=== PATIENT | male | born 1945 | race Caucasian/White ===

== ENCOUNTER 2016-12-23 01:44 | Emergency (ER) | payer OTHER ==
[~2016-12-23] VITALS: Ht 172.7 cm; Wt 81.8 kg
[~2016-12-23 01:44] MED LIST: EPP3/2 IM
[2016-12-23 01:54] VITALS: TEMP 36.6; O2SAT 93; Ht 172.7 cm; Wt 81.8 kg
[2016-12-23] MEDS ORDERED: SODIUM CHLORIDE 0.9% 250ML 250 ML IV STA (02:12)
[2016-12-23] MEDS ORDERED: SODIUM CHLORIDE 0.9% 1000ML 1,000 ML IV STA (02:12)
--- NOTE | 2016-12-23 02:22 | EMERGENCY ROOM VISIT NOTE ---
History Report prepared by Emili: Katharina Lerma Under the Supervision of: Dr. Trudy Alaniz M.D. First contact with patient: 01:55 Chief Complaint: SYNCOPE (NEAR SYNCOPE) Stated Complaint: etoh syncopal episode History of Present Illness The patient is a 71 year old male who presents to the Emergency Room via EMS to be evaluated for an episode of syncope that occurred this evening. Per family, the patient was enjoying an evening at camp with his friends. The patient was drinking vodka and orange juice. As they were leaving, the patient's legs seemed to give out. The patient did not fall. His family deny that the patient lost consciousness, he did not hit his head. The patient denies having chest pain. His family members note that the patient has a history of diabetes. Onset: this evening Position: other (global ) Quality: other (syncope) Timing: other (episode) Associated Symptoms: No LOC, No chest pain Note: The patient's family members deny that the patient hit his head. Review of Systems See HPI for pertinent positives & negatives. A total of 10 systems reviewed and were otherwise negative. Past Medical & Surgical Medical Problems: (1) Diabetes Family History Diabetes mellitus Social History Smoking Status: Never Smoker Alcohol Use: occasionally Drug Use: none Marital Status: Housing Status: lives with family Current/Historical Medications Scheduled Epinephrine (Epipen), 0.3 MG IM UD Glimepiride (Glimepiride), 4 MG PO EVENING MEAL Metformin Hcl (Glucophage), 1,000 MG PO QPM Allergies Uncoded Allergies: BEES (Allergy, Severe, ANAPHYLACTIC, 07/25/12) Physical Exam Vital Signs Date Time Temp Pulse Resp B/P Pulse Ox O2 Delivery O2 Flow Rate FiO2 12/23/16 06:14 85 16 107/69 97 Room Air 12/23/16 05:51 87 12/23/16 04:45 88 16 109/65 97 Room Air 12/23/16 03:37 78 16 118/68 92 Room Air 12/23/16 01:59 93 12/23/16 01:54 36.6 93 18 113/64 93 Room Air 12/23/16 01:54 93 Room Air Physical Exam Vital signs reviewed. General: Odor of EtOH in the breath, 71-year-old male. No signs of trauma. HEENT: Mild scleral injection bilaterally, PERRLA, neck supple, dry mucous membranes. Atraumatic Cardiovascular: Regular rate and rhythm, no extra sounds. Pulmonary: Clear to auscultation bilaterally, normal work of breathing. Abdomen: Soft, nontender, nondistended, positive bowel sounds. Musculoskeletal: Upper and lower extremities atraumatic, no peripheral edema Skin: Warm, dry, no rash. Atraumatic. Neurologic: Patient is currently awake and speaking. His words are slurred but appropriate. Medical Decision & Procedures ER Provider Diagnostic Interpretation: X-ray results as stated below per interpretation by me. Chest x-ray: A poor inspiratory effort, he has cardiomegaly, mild vascular congestion, no focal infiltrate, no pneumothorax, distended gastric bubble. Laboratory Results 12/23/16 02:30 Red Blood Count 4.55, Mean Corpuscular Volume 89.2, Mean Corpuscular Hemoglobin 32.1, Mean Corpuscular Hemoglobin Concent 36.0, Mean Platelet Volume 9.7, Neutrophils (%) (Auto) 57.0, Lymphocytes (%) (Auto) 32.2, Monocytes (%) (Auto) 6.6, Eosinophils (%) (Auto) 3.1, Basophils (%) (Auto) 0.8, Neutrophils # (Auto) 5.48, Lymphocytes # (Auto) 3.09, Monocytes # (Auto) 0.63, Eosinophils # (Auto) 0.30, Basophils # (Auto) 0.08 12/23/16 02:30 Test 12/23/16 02:30 12/23/16 02:40 12/23/16 04:45 White Blood Count 9.61 K/uL (4.8-10.8) Red Blood Count 4.55 M/uL (4.7-6.1) Hemoglobin 14.6 g/dL (14.0-18.0) Hematocrit 40.6 % (42-52) Mean Corpuscular Volume 89.2 fL (80-100) Mean Corpuscular Hemoglobin 32.1 pg (25-34) Mean Corpuscular Hemoglobin Concent 36.0 g/dl (32-36) Platelet Count 223 K/uL (130-400) Mean Platelet Volume 9.7 fL (7.4-10.4) Neutrophils (%) (Auto) 57.0 % Lymphocytes (%) (Auto) 32.2 % Monocytes (%) (Auto) 6.6 % Eosinophils (%) (Auto) 3.1 % Basophils (%) (Auto) 0.8 % Neutrophils # (Auto) 5.48 K/uL (1.4-6.5) Lymphocytes # (Auto) 3.09 K/uL (1.2-3.4) Monocytes # (Auto) 0.63 K/uL (0.11-0.59) Eosinophils # (Auto) 0.30 K/uL (0-0.5) Basophils # (Auto) 0.08 K/uL (0-0.2) RDW Standard Deviation 40.9 fL (36.4-46.3) RDW Coefficient of Variation 12.8 % (11.5-14.5) Immature Granulocyte % (Auto) 0.3 % Immature Granulocyte # (Auto) 0.03 K/uL (0.00-0.02) Anion Gap 13.0 mmol/L (3-11) Est Creatinine Clear Calc Drug Dose 70.2 ml/min Estimated GFR () 96.0 Estimated GFR (Non- 82.8 BUN/Creatinine Ratio 15.2 (10-20) Calcium Level 8.2 mg/dl (8.5-10.1) Magnesium Level 2.1 mg/dl (1.8-2.4) Total Bilirubin 0.3 mg/dl (0.2-1) Direct Bilirubin < 0.1 mg/dl (0-0.2) Aspartate Amino Transf (AST/SGOT) 18 U/L (15-37) Alanine Aminotransferase (ALT/SGPT) 38 U/L (12-78) Alkaline Phosphatase 58 U/L (45-117) Total Creatine Kinase 97 U/L (39-308) Creatine Kinase MB 1.9 ng/ml (0.5-3.6) Creatine Kinase MB Ratio 2.0 (0-3.0) Total Protein 7.3 gm/dl (6.4-8.2) Albumin 3.8 gm/dl (3.4-5.0) Ethyl Alcohol mg/dL 227.0 mg/dl (0-3) Bedside Troponin I 0.000 ng/ml (0-0.045) Urine Color YELLOW Urine Appearance CLEAR (CLEAR) Urine pH 5.0 (4.5-7.5) Urine Specific [place] 1.010 (1.000-1.030) Urine Protein NEG (NEG) Urine Glucose (UA) TRACE (NEG) Urine Ketones TRACE (NEG) Urine Occult Blood NEG (NEG) Urine Nitrite NEG (NEG) Urine Bilirubin NEG (NEG) Urine Urobilinogen NEG (NEG) Urine Leukocyte Esterase NEG (NEG) Laboratory results per my review. Medications Administered Medications (Trade) Dose Ordered Sig/Castro Route Start Time Stop Time Status Last Admin Dose Admin Sodium Chloride 250 ml @ 999 mls/hr Q16M STAT IV 12/23/16 02:12 12/23/16 02:27 DC 12/23/16 02:46 999 MLS/HR Sodium Chloride (Nss 1000ml) 1,000 ml @ 125 mls/hr Q8H STAT IV 12/23/16 02:12 12/23/16 06:39 DC 12/23/16 03:04 125 MLS/HR ECG Indication: syncope Rate (beats per minute): 84 Rhythm: sinus rhythm Findings: 1st degree AV block, no acute ischemic change, no ectopy, other ( possible previous anterior infarct, T wave abnormality inferior leads) ED Course 0211: Past medical records reviewed. The patient was evaluated in room A2. A complete history and physical examination was performed. 0212: Sodium Chloride 1000 ml @ 125 mls/hr IV, Sodium Chloride 250 ml @ 999 mls/ hr IV 0447: I reevaluated the patient and informed him that he will stay in the ED until later this morning. 0602: I reevaluated the patient; he will now eat some breakfast and will then try to walk. 0645: Upon reevaluation, the patient appeared to have improvement of his symptoms. I discussed findings with the patient. He verbalized agreement of the treatment plan. The patient was discharged home. Medical Decision The patient is a 71 year old male who presents to the ED with complaints of an episode of syncope. The differential diagnosis of the patient's presentation includes alcohol ingestion, illicit drug use, trauma, and dehydration. This pt was evaluated and appeared to be in no distress. IV access was obtained and lab work was drawn. Pt was placed on the traffic monitor specialist. Pt was hydrated with NSS. Lab work reveals a blood ETOH of 227 with mild hyperglycemia. EKG reveals a NSR without arrhythmia. Pt was observed for several hours in the ED. He was ambulatory to the bathroom and tolerating po food and fluids. He was d/c to care of family and will return to the ED for worsening of symptoms or any medical concerns. Impression Primary Impression: Alcohol intoxication Additional Impression: Near syncope Scribe Attestation The scribe's documentation has been prepared under my direction and personally reviewed by me in its entirety. I confirm that the note above accurately reflects all work, treatment, procedures, and medical decision making performed by me. Departure Information Dispostion Home / Self-Care Referrals No Doctor, Assigned (PCP) Forms HOME CARE DOCUMENTATION FORM, IMPORTANT VISIT INFORMATION Patient Instructions My [facility] Additional Instructions Diagnosis: Alcohol intoxication, near syncope Drink plenty of clear fluids today. Avoid alcohol consumption in excess. Follow-up with your physician this week if symptoms of lightheadedness and near- syncope recur. Return to the emergency department immediately for worsening of symptoms or any medical concerns. Problem Qualifiers Primary Impression: Alcohol intoxication Complication of substance-induced condition: with unspecified complication Qualified Codes: F10.129 - Alcohol abuse with intoxication, unspecified
[2016-12-23] MEDS ORDERED: GLC/500 PO (02:42)
[2016-12-23] MEDS ORDERED: GLIM2TAB2 PO (02:45)
[2016-12-23 03:01] LABS: BASO % 0.8 %; BASO ABS # 0.08 K/uL (0-0.2); COMPLETE YES; EOS % 3.1 %; HEMATOCRIT 40.6 % (42-52); IG% 0.3 %; LYMPH % 32.2 %; LYMPH ABS # 3.09 K/uL (1.2-3.4); MEAN CELL VOLUME 89.2 fL (80-100); MEAN CORPUSCULAR HEMOGLOBIN 32.1 pg (25-34); MEAN PLATELET VOLUME 9.7 fL (7.4-10.4); MONO % 6.6 %; PLATELET COUNT 223 K/uL (130-400); RED BLOOD COUNT 4.55 M/uL (4.7-6.1); WHITE BLOOD COUNT 9.61 K/uL (4.8-10.8)
[2016-12-23 03:23] LABS: ALT/SGPT 38 U/L (12-78); AST/SGOT 18 U/L (15-37); BLOOD UREA NITROGEN 14 mg/dl (7-18); BUN/CREATININE RATIO 15.2 (10-20); CALCIUM 8.2 mg/dl (8.5-10.1); CARBON DIOXIDE 21 mmol/L (21-32); CHLORIDE 103 mmol/L (98-107); CREATININE 0.92 mg/dl (0.60-1.40); GLUCOSE 171 mg/dl (70-99); MAGNESIUM 2.1 mg/dl (1.8-2.4); POTASSIUM 4.2 mmol/L (3.5-5.1); SODIUM 137 mmol/L (136-145)
[2016-12-23 03:28] LABS: ALKALINE PHOSPHATASE 58 U/L (45-117)
[2016-12-23 05:31] LABS: URINE APPEARANCE CLEAR (CLEAR); URINE BILIRUBIN NEG (NEG); URINE COLOR YELLOW; URINE NITRITE NEG (NEG); UROBILINOGEN NEG (NEG); ZZUR CULT IF INDIC CLEAN CATCH NO
[2016-12-23 05:34] LABS: MANUAL MICROSCOPIC REQUIRED? NO; REVIEW REQ? NO
--- NOTE | 2016-12-23 06:03 | DIAGNOSTIC IMAGING REPORT ---
CHEST ONE VIEW PORTABLE CLINICAL HISTORY: ETOH, near syncope dyspnea COMPARISON STUDY: No previous studies for comparison. FINDINGS: The bones soft tissues and hemidiaphragms are normal. The cardiomediastinal silhouette is normal. The lungs are clear. The pulmonary vasculature is normal. IMPRESSION: Negative chest. Electronically signed by: Michel Armstrong M.D. 12/23/2016 6:01 AM Dictated Date/Time: 12/23/2016 6:01 AM
[2016-12-23 06:14] VITALS: BP 107/69; PULSE 85; O2SAT 97
== END 2016-12-23 06:25 | disposition home or self-care (01) ==
LOC: EDBD 01:44 → C.EDA 01:46
DX: R55 Syncope and collapse (principal); F10.129 Alcohol abuse with intoxication, unspecified; Y90.7 Blood alcohol level of 200-239 mg/100 ml; I44.0 Atrioventricular block, first degree; E11.65 Type 2 diabetes mellitus with hyperglycemia; Z79.84 Long term (current) use of oral hypoglycemic drugs; Z91.030 Bee allergy status; Z83.3 Family history of diabetes mellitus